=== PATIENT | female | born 2000 | race Hispanic/Latino ===

== ENCOUNTER 2023-11-10 09:59 | Emergency (ER) | payer SELFPAY ==
[2023-11-10 10:20] LABS: APPEARANCE,URINE SLT CLOUDY; BILIRUBIN,URINE NEGATIVE (NEGATIVE); COLOR,URINE YELLOW; GLUCOSE,URINE NEGATIVE (NEGATIVE); KETONES,URINE NEGATIVE (NEGATIVE); LEUKOCYTE ESTERASE,URINE LARGE (NEGATIVE); NITRITE,URINE NEGATIVE (NEGATIVE); OCCULT BLOOD,URINE MODERATE (NEGATIVE); PH,URINE 6.5 (5.0-8.0); PROTEIN,URINE NEGATIVE (NEGATIVE); UROBILINOGEN,URINE 0.2 EU/dL (<2.0)
[2023-11-10 10:24] LABS: BACTERIA,URINE 1+ (NEGATIVE); EPITHELIAL CELLS,URINE FEW (NONE-FEW); WBC,URINE 20-30 (0-5/HPF)
[2023-11-10] MEDS: Phenazopyridine 200 MG Tab PO ONE (11:08)
[2023-11-10] MEDS: Cefdinir 300 MG Cap PO ONE (11:08)
== END 2023-11-10 11:11 | disposition home or self-care (01) ==
LOC: MW.ED 09:59
DX: N39.0 Urinary tract infection, site not specified (principal); I10 Essential (primary) hypertension; E11.9 Type 2 diabetes mellitus without complications; Z75.8 Other problems related to medical facilities and other health care; Z88.1 Allergy status to other antibiotic agents; Z79.899 Other long term (current) drug therapy
CPT/HCPCS: 81001; 81003; 81025; 87086; 99283; A9270

== ENCOUNTER 2023-11-23 22:02 | Emergency (ER) | payer SELFPAY ==
[2023-11-23 22:19] LABS: APPEARANCE,URINE SLT CLOUDY; BILIRUBIN,URINE NEGATIVE (NEGATIVE); COLOR,URINE YELLOW; GLUCOSE,URINE NEGATIVE (NEGATIVE); KETONES,URINE NEGATIVE (NEGATIVE); LEUKOCYTE ESTERASE,URINE TRACE (NEGATIVE); NITRITE,URINE NEGATIVE (NEGATIVE); OCCULT BLOOD,URINE LARGE (NEGATIVE); PROTEIN,URINE NEGATIVE (NEGATIVE); UROBILINOGEN,URINE 0.2 EU/dL (<2.0)
[2023-11-23 22:26] LABS: BACTERIA,URINE MODERATE (NEGATIVE); EPITHELIAL CELLS,URINE MODERATE (NONE-FEW); RBC,URINE 0-1 (0-2/HPF)
[2023-11-23 22:52] LABS: BASOPHILS ABSOLUTE AUTO 0.05 K/uL (0.00-0.20); BASOPHILS PERCENT AUTO 0.5 % (0.0-1.0); EOSINOPHILS ABSOLUTE AUTO 0.27 K/uL (0.00-0.45); EOSINOPHILS PERCENT AUTO 2.9 % (0.0-6.0); HEMATOCRIT 41.5 % (37.0-47.0); HEMOGLOBIN 14.3 g/dL (12.0-16.0); IMMATURE GRAN ABSOLUTE AUTO 0.03 K/uL (0.00-0.05); IMMATURE GRAN PERCENT AUTO 0.3 % (0.0-0.4); LYMPHOCYTES ABSOLUTE AUTO 2.53 K/uL (1.00-4.80); LYMPHOCYTES PERCENT AUTO 27.3 % (24.0-44.0); MEAN CORPUSCULAR HEMOGLOBIN 30.4 pg (28.0-32.0); MEAN CORPUSCULAR HGB CONC 34.5 g/dL (32.0-36.0); MEAN CORPUSCULAR VOLUME 88.3 fL (83.0-99.0); MEAN PLATELET VOLUME 10.2 fL (9.4-12.3); MONOCYTES ABSOLUTE AUTO 0.63 K/uL (0.00-0.80); MONOCYTES PERCENT AUTO 6.8 % (0.0-8.0); NEUTROPHILS ABSOLUTE AUTO 5.77 K/uL (1.80-7.70); NEUTROPHILS PERCENT AUTO 62.2 % (41.0-71.0); PLATELET COUNT,PLT 251 K/uL (150-400); WHITE BLOOD CELL COUNT,WBC 9.28 K/uL (3.9-11.3)
[2023-11-23] MEDS: Ketorolac 30 MG/ML SDV IVPUSH ONE (22:56)
[2023-11-23] MEDS: Sodium Chloride 0.9% 1,000 ML IV ONE (22:56)
[2023-11-23 23:15] LABS: ALANINE AMINOTRANSFERASE,ALT 15 IU/L (14-63); ALKALINE PHOSPHATASE 95 U/L (46-116); ASPARTATE AMNIOTRANSFERASE,AST 18 IU/L (15-37); BILIRUBIN TOTAL 0.9 mg/dL (0.2-1.0); BLOOD UREA NITROGEN,BUN 13 mg/dL (7.0-18.0); CARBON DIOXIDE,CO2 25.4 mmol/L (21.0-32.0); CHLORIDE,CL 106 mmol/L (98-107); CREATININE 0.9 mg/dL (0.6-1.0); GLUCOSE RANDOM 92 mg/dL (74-106); POTASSIUM,K 3.7 mmol/L (3.5-5.1); PROTEIN TOTAL,TP 8.2 g/dL (6.4-8.2); SODIUM,NA 140 mmol/L (136-145)
[2023-11-23 23:16] LABS: ESTIMATED GFR 91 mL/min (>60)
[2023-11-23] MEDS: Morphine 2 MG/ML SYRINGE IVPUSH ONE (23:19)
[2023-11-23 23:44] LABS: CANDIDA DNA PROBE POSITIVE (NEGATIVE); GARDNERELLA DNA PROBE POSITIVE (NEGATIVE); TRICHOMONAS DNA PROBE NEGATIVE (NEGATIVE)
[2023-11-24 00:22] LABS: C. TRACHOMATIS BY PCR NOT DETECTED; N. GONORRHOEAE BY PCR NOT DETECTED
== END 2023-11-24 00:04 | disposition home or self-care (01) ==
LOC: MW.ED 22:02
DX: B37.31 Acute candidiasis of vulva and vagina (principal); N76.0 Acute vaginitis; Z88.1 Allergy status to other antibiotic agents; Z79.899 Other long term (current) drug therapy; Z75.8 Other problems related to medical facilities and other health care
CPT/HCPCS: 36415; 80053; 81001; 81025; 85025; 87480; 87491; 87510; 87591; 87660; 96374; 96375; 99283; J1885; J2270; J7030; 99284

== ENCOUNTER 2023-12-02 14:22 | Emergency (ER) | payer SELFPAY ==
[2023-12-02] MEDS: Ondansetron 4 MG Tab.DIS PO ONE (15:28)
== END 2023-12-03 10:11 | disposition home or self-care (01) ==
LOC: MW.ED 14:22
DX: S09.90XA Unspecified injury of head, initial encounter (principal); F17.210 Nicotine dependence, cigarettes, uncomplicated; Z75.8 Other problems related to medical facilities and other health care; Z88.8 Allergy status to other drugs, medicaments and biological substances; Z79.899 Other long term (current) drug therapy; W01.198A Fall on same level from slipping, tripping and stumbling with subsequent striking against other object, initial encounter
CPT/HCPCS: 70450; 99283; A9270

== ENCOUNTER 2023-12-28 18:54 | Emergency (ER) | payer SELFPAY ==
[2023-12-28 19:42] LABS: BASOPHILS ABSOLUTE AUTO 0.04 K/uL (0.00-0.20); BASOPHILS PERCENT AUTO 0.4 % (0.0-1.0); EOSINOPHILS ABSOLUTE AUTO 0.16 K/uL (0.00-0.45); EOSINOPHILS PERCENT AUTO 1.6 % (0.0-6.0); HEMATOCRIT 42.3 % (37.0-47.0); HEMOGLOBIN 14.3 g/dL (12.0-16.0); IMMATURE GRAN ABSOLUTE AUTO 0.02 K/uL (0.00-0.05); IMMATURE GRAN PERCENT AUTO 0.2 % (0.0-0.4); LYMPHOCYTES ABSOLUTE AUTO 1.94 K/uL (1.00-4.80); LYMPHOCYTES PERCENT AUTO 19.4 % (24.0-44.0); MEAN CORPUSCULAR HEMOGLOBIN 30.5 pg (28.0-32.0); MEAN CORPUSCULAR HGB CONC 33.8 g/dL (32.0-36.0); MEAN CORPUSCULAR VOLUME 90.2 fL (83.0-99.0); MONOCYTES ABSOLUTE AUTO 0.54 K/uL (0.00-0.80); MONOCYTES PERCENT AUTO 5.4 % (0.0-8.0); NEUTROPHILS ABSOLUTE AUTO 7.31 K/uL (1.80-7.70); PLATELET COUNT,PLT 242 K/uL (150-400); RED BLOOD CELL COUNT 4.69 M/uL (4.10-5.30); WHITE BLOOD CELL COUNT,WBC 10.01 K/uL (3.9-11.3)
[2023-12-28 20:00] LABS: APPEARANCE,URINE SLT CLOUDY; COLOR,URINE YELLOW; GLUCOSE,URINE NEGATIVE (NEGATIVE); KETONES,URINE 40 mg/dL (NEGATIVE); LEUKOCYTE ESTERASE,URINE SMALL (NEGATIVE); NITRITE,URINE NEGATIVE (NEGATIVE); OCCULT BLOOD,URINE MODERATE (NEGATIVE); PROTEIN,URINE NEGATIVE (NEGATIVE); UROBILINOGEN,URINE 0.2 EU/dL (<2.0)
[2023-12-28] MEDS: Ketorolac 30 MG/ML SDV IM ONE (20:08)
[2023-12-28 20:09] LABS: BILIRUBIN,URINE SMALL (NEGATIVE)
[2023-12-28 20:10] LABS: BACTERIA,URINE 1+ (NEGATIVE); EPITHELIAL CELLS,URINE MODERATE (NONE-FEW); RBC,URINE 0-2 (0-2/HPF)
[2023-12-28 20:23] LABS: ALBUMIN 4.2 g/dL (3.4-5.0); BILIRUBIN TOTAL 1.4 mg/dL (0.2-1.0); CARBON DIOXIDE,CO2 25.6 mmol/L (21.0-32.0); CREATININE 0.9 mg/dL (0.6-1.0); EST CRCL DRUG DOSING (CG) 75.58 mL/min; POTASSIUM,K 4.2 mmol/L (3.5-5.1); PROTEIN TOTAL,TP 8.2 g/dL (6.4-8.2)
== END 2023-12-28 20:30 | disposition home or self-care (01) ==
LOC: MW.ED 18:54
DX: M53.3 Sacrococcygeal disorders, not elsewhere classified (principal); Z88.8 Allergy status to other drugs, medicaments and biological substances; Z79.899 Other long term (current) drug therapy; Z75.8 Other problems related to medical facilities and other health care
CPT/HCPCS: 36415; 80053; 81001; 81025; 85025; 96372; 99283; J1885

== ENCOUNTER 2024-02-01 21:09 | Emergency (ER) | payer SELFPAY ==
[2024-02-01 22:12] LABS: BASOPHILS ABSOLUTE AUTO 0.07 K/uL (0.00-0.20); BASOPHILS PERCENT AUTO 0.7 % (0.0-1.0); EOSINOPHILS ABSOLUTE AUTO 0.08 K/uL (0.00-0.45); EOSINOPHILS PERCENT AUTO 0.8 % (0.0-6.0); HEMATOCRIT 45.6 % (37.0-47.0); HEMOGLOBIN 15.5 g/dL (12.0-16.0); IMMATURE GRAN ABSOLUTE AUTO 0.04 K/uL (0.00-0.05); IMMATURE GRAN PERCENT AUTO 0.4 % (0.0-0.4); LYMPHOCYTES PERCENT AUTO 20.1 % (24.0-44.0); MEAN CORPUSCULAR HEMOGLOBIN 30.6 pg (28.0-32.0); MEAN CORPUSCULAR VOLUME 89.9 fL (83.0-99.0); MEAN PLATELET VOLUME 10.1 fL (9.4-12.3); MONOCYTES PERCENT AUTO 5.7 % (0.0-8.0); NEUTROPHILS ABSOLUTE AUTO 7.56 K/uL (1.80-7.70); NEUTROPHILS PERCENT AUTO 72.3 % (41.0-71.0); PLATELET COUNT,PLT 257 K/uL (150-400); RED BLOOD CELL COUNT 5.07 M/uL (4.10-5.30); WHITE BLOOD CELL COUNT,WBC 10.45 K/uL (3.9-11.3)
[2024-02-01] MEDS: Iopamidol 755 MG/ML 500 ML Multipack Bottle IVPUSH STA (22:14)
[2024-02-01] MEDS: Sodium Chloride 0.9% 1,000 ML IV ONE (22:27)
[2024-02-01 22:30] LABS: D-DIMER QUANTITATIVE 0.82 mg/L FEU (0.00-0.50); PTT,PARTIAL THROMBOPLSTIN TIME 25.7 SEC (23.9-30.7)
[2024-02-01 22:43] LABS: A/G RATIO 1.1 (0.9-1.6); ALBUMIN 4.6 g/dL (3.4-5.0); BILIRUBIN TOTAL 1.5 mg/dL (0.2-1.0); CALCIUM 9.5 mg/dL (8.5-10.1); CARBON DIOXIDE,CO2 29.8 mmol/L (21.0-32.0); CREATININE 0.9 mg/dL (0.6-1.0); EST CRCL DRUG DOSING (CG) 75.58 mL/min; POTASSIUM,K 3.9 mmol/L (3.5-5.1); PROTEIN TOTAL,TP 8.6 g/dL (6.4-8.2)
[2024-02-01 23:11] LABS: BILIRUBIN,URINE NEGATIVE (NEGATIVE); COLOR,URINE YELLOW; GLUCOSE,URINE NEGATIVE (NEGATIVE); KETONES,URINE 40 mg/dL (NEGATIVE); LEUKOCYTE ESTERASE,URINE NEGATIVE (NEGATIVE); NITRITE,URINE NEGATIVE (NEGATIVE); OCCULT BLOOD,URINE NEGATIVE (NEGATIVE); PROTEIN,URINE NEGATIVE (NEGATIVE)
[2024-02-01 23:13] LABS: APPEARANCE,URINE HAZY
[2024-02-01] MEDS: Sodium Chloride 0.9% 10 ML Syringe FLUSH PRN (23:16)
[2024-02-01] MEDS: Sodium Chloride 0.9% 2.5 ML Syringe FLUSH PRN (23:16)
[2024-02-02] MEDS: Famotidine 20 MG/2 ML SDV IVPUSH ONE (00:02)
[2024-02-02] MEDS: Ketorolac 30 MG/ML SDV IVPUSH ONE (00:02)
[2024-02-02] MEDS: Diazepam 2 MG Tab PO ONE (00:56)
== END 2024-02-02 01:46 | disposition home or self-care (01) ==
LOC: MW.ED 21:09
DX: R00.2 Palpitations (principal); F41.9 Anxiety disorder, unspecified; R07.9 Chest pain, unspecified; Z88.8 Allergy status to other drugs, medicaments and biological substances; Z79.899 Other long term (current) drug therapy; Z75.8 Other problems related to medical facilities and other health care
CPT/HCPCS: 36415; 71275; 71275-26; 80053; 81003; 83880; 84484; 84703; 85025; 85379; 85730; 93005; 93010; 96361; 96374; 96375; 99285; 99285-25; A9270-GY; J1885; J3490; J7030; Q9967

== ENCOUNTER 2024-02-22 14:42 | Emergency (ER) | payer SELFPAY ==
[2024-02-22 15:15] LABS: BILIRUBIN,URINE NEGATIVE (NEGATIVE); COLOR,URINE YELLOW; GLUCOSE,URINE NEGATIVE (NEGATIVE); KETONES,URINE NEGATIVE (NEGATIVE); LEUKOCYTE ESTERASE,URINE MODERATE (NEGATIVE); NITRITE,URINE NEGATIVE (NEGATIVE); OCCULT BLOOD,URINE NEGATIVE (NEGATIVE); PROTEIN,URINE NEGATIVE (NEGATIVE); UROBILINOGEN,URINE 0.2 EU/dL (<2.0)
[2024-02-22 15:23] LABS: APPEARANCE,URINE SLT CLOUDY; BACTERIA,URINE FEW (NEGATIVE); EPITHELIAL CELLS,URINE FEW (NONE-FEW); RBC,URINE 0-1 (0-2/HPF)
[2024-02-22 16:08] LABS: CANDIDA DNA PROBE NEGATIVE (NEGATIVE); GARDNERELLA DNA PROBE NEGATIVE (NEGATIVE); TRICHOMONAS DNA PROBE NEGATIVE (NEGATIVE)
[2024-02-22 16:58] LABS: C. TRACHOMATIS BY PCR NOT DETECTED; N. GONORRHOEAE BY PCR NOT DETECTED
== END 2024-02-22 17:20 | disposition home or self-care (01) ==
LOC: MW.ED 14:42
DX: N30.00 Acute cystitis without hematuria (principal); F17.210 Nicotine dependence, cigarettes, uncomplicated; Z75.8 Other problems related to medical facilities and other health care; Z88.1 Allergy status to other antibiotic agents
CPT/HCPCS: 81001; 81025; 87086; 87480; 87491; 87510; 87591; 87660; 99283; 99284

== ENCOUNTER 2024-02-23 19:05 | Emergency (ER) | payer SELFPAY ==
[2024-02-23] MEDS: Sodium Chloride 0.9% 2.5 ML Syringe FLUSH PRN (19:37)
[2024-02-23] MEDS: Morphine 4 MG/ML Syringe IVPUSH ONE (19:37)
[2024-02-23] MEDS: Ondansetron 4 MG/2 ML SDV IVPUSH ONE (19:37)
[2024-02-23 19:50] LABS: BASOPHILS ABSOLUTE AUTO 0.08 K/uL (0.00-0.20); BASOPHILS PERCENT AUTO 0.4 % (0.0-1.0); EOSINOPHILS ABSOLUTE AUTO 0.16 K/uL (0.00-0.45); EOSINOPHILS PERCENT AUTO 0.9 % (0.0-6.0); HEMATOCRIT 42.6 % (37.0-47.0); HEMOGLOBIN 14.3 g/dL (12.0-16.0); IMMATURE GRAN ABSOLUTE AUTO 0.13 K/uL (0.00-0.05); IMMATURE GRAN PERCENT AUTO 0.7 % (0.0-0.4); LYMPHOCYTES ABSOLUTE AUTO 2.68 K/uL (1.00-4.80); LYMPHOCYTES PERCENT AUTO 14.3 % (24.0-44.0); MEAN CORPUSCULAR HEMOGLOBIN 31.2 pg (28.0-32.0); MEAN CORPUSCULAR HGB CONC 33.6 g/dL (32.0-36.0); MEAN PLATELET VOLUME 9.9 fL (9.4-12.3); MONOCYTES ABSOLUTE AUTO 0.83 K/uL (0.00-0.80); MONOCYTES PERCENT AUTO 4.4 % (0.0-8.0); NEUTROPHILS PERCENT AUTO 79.3 % (41.0-71.0); PLATELET COUNT,PLT 245 K/uL (150-400); RED BLOOD CELL COUNT 4.58 M/uL (4.10-5.30); WHITE BLOOD CELL COUNT,WBC 18.68 K/uL (3.9-11.3)
[2024-02-23] MEDS: Famotidine 20 MG/2 ML SDV IVPUSH ONE (19:53)
[2024-02-23 20:00] LABS: INR 1.02 (0.86-1.11)
[2024-02-23 20:11] LABS: A/G RATIO 1.2 (0.9-1.6); ALANINE AMINOTRANSFERASE,ALT 22 IU/L (14-63); ALBUMIN 4.1 g/dL (3.4-5.0); ALKALINE PHOSPHATASE 96 U/L (46-116); ASPARTATE AMNIOTRANSFERASE,AST 21 IU/L (15-37); BILIRUBIN TOTAL 0.9 mg/dL (0.2-1.0); BLOOD UREA NITROGEN,BUN 6 mg/dL (7.0-18.0); CALCIUM 9.1 mg/dL (8.5-10.1); CARBON DIOXIDE,CO2 25.8 mmol/L (21.0-32.0); CHLORIDE,CL 105 mmol/L (98-107); EST CRCL DRUG DOSING (CG) 68.02 mL/min; GLUCOSE RANDOM 123 mg/dL (74-106); POTASSIUM,K 3.4 mmol/L (3.5-5.1); PROTEIN TOTAL,TP 7.6 g/dL (6.4-8.2); SODIUM,NA 141 mmol/L (136-145)
[2024-02-23 20:12] LABS: ESTIMATED GFR 80 mL/min (>60); ETHANOL BLOOD MEDICAL < 3.0 mg/dL
[2024-02-23] MEDS: fentaNYL 100 MCG/2 ML SDV IVPUSH ONE (21:17)
[2024-02-23] MEDS: Hydrogen Peroxide 3% Top Soln 473 ML Bottle TOP ONE (21:20)
[2024-02-23] MEDS: Bacitracin Oint 1 GM U/D Packet TOP ONE (21:26)
[2024-02-23] MEDS: Hydrogen Peroxide 3% Top Soln 473 ML Bottle ONE (21:35)
[2024-02-23] MEDS: fentaNYL 50 MCG/ML SDV IVPUSH ONE (23:44)
[2024-02-23] MEDS: Sodium Chloride 0.9% 10 ML Syringe FLUSH PRN (23:44)
== END 2024-02-24 00:24 | disposition home or self-care (01) ==
LOC: MW.ED 19:05
DX: S52.101A Unspecified fracture of upper end of right radius, initial encounter for closed fracture (principal); S52.001A Unspecified fracture of upper end of right ulna, initial encounter for closed fracture; Z88.1 Allergy status to other antibiotic agents; Z79.899 Other long term (current) drug therapy; X58.XXXA Exposure to other specified factors, initial encounter
CPT/HCPCS: 29125; 36415; 71045; 73030; 73060; 73090; 80053; 80307; 84703; 85025; 85610; 96374; 96375; 96376; 99284; J2270; J2405; J3010; J3490

== ENCOUNTER 2024-02-29 07:57 | Day surgery (SDC) | payer MEDICAID ==
[~2024-02-29 07:57] MED LIST: Albuterol 0.083% 2.5 MG/3 ML Neb Soln NEB PRN; HYDROmorphone 1 MG/ML Syringe IVPUSH PRN; Metoclopramide 10 MG/2 ML SDV IVPUSH PRN; Morphine 2 MG/ML SYRINGE IVPUSH PRN; Naloxone 0.4 MG/ML SDV IVPUSH PRN; Ondansetron 4 MG/2 ML SDV IVPUSH PRN; droPERidol 5 MG/2 ML SDV IVPUSH PRN; fentaNYL 50 MCG/ML SDV IVPUSH PRN
[2024-02-29] MEDS ORDERED: ceFAZolin 2 GM in Sodium Chloride 0.9% 50 ML IV ONE (08:00)
[2024-02-29] MEDS ORDERED: Lidocaine 2% 5 ML SDV ONE ×2 (08:20→09:16)
[2024-02-29] MEDS ORDERED: Bupivacaine 0.5% 30 ML SDV ONE (08:20)
[2024-02-29] MEDS: Lactated Ringers 1,000 ML IV SCH (08:38)
[2024-02-29] MEDS ORDERED: Midazolam 1 MG/ML 2 ML SDV ONE ×2 (08:39→10:53)
[2024-02-29] MEDS ORDERED: Scopalamine 1mg/3day Transdermal Patch TOP ONE (08:40)
[2024-02-29] MEDS ORDERED: propofoL 50 ML ONE ×2 (09:16→11:56)
[2024-02-29] MEDS ORDERED: ceFAZolin 1 GM Vial ONE (11:07)
[2024-02-29] MEDS ORDERED: fentaNYL 100 MCG/2 ML SDV ONE (11:11)
[2024-02-29] MEDS ORDERED: Propofol 200 MG/20 ML SDV ONE ×2 (12:53→13:10)
[2024-02-29] MEDS ORDERED: Ondansetron 4 MG/2 ML SDV ONE (13:34)
== END 2024-02-29 15:25 | disposition home or self-care (01) ==
LOC: MW.SDS 07:57
PROVIDERS: ATTEND Orthopaedic Surgery
DX: S52.301A Unspecified fracture of shaft of right radius, initial encounter for closed fracture (principal); S52.201A Unspecified fracture of shaft of right ulna, initial encounter for closed fracture; J45.909 Unspecified asthma, uncomplicated; E66.9 Obesity, unspecified; Z88.8 Allergy status to other drugs, medicaments and biological substances; Z79.899 Other long term (current) drug therapy; V86.95XA Unspecified occupant of 3- or 4- wheeled all-terrain vehicle (ATV) injured in nontraffic accident, initial encounter
CPT/HCPCS: 25575; 76000; 81025; J0665; J0690; J2250; J2405; J2704; J3010; J7120; 01830; 64417; C1713; C1776; J3490

== ENCOUNTER 2024-03-04 22:05 | Emergency (ER) | payer MEDICAID | END 2024-03-04 22:40 | disposition home or self-care (01) | LOC: MW.ED 22:05 | DX: Z48.817 Encounter for surgical aftercare following surgery on the skin and subcutaneous tissue (principal); J45.909 Unspecified asthma, uncomplicated; Z79.82 Long term (current) use of aspirin; Z88.8 Allergy status to other drugs, medicaments and biological substances; Z90.49 Acquired absence of other specified parts of digestive tract; Z79.899 Other long term (current) drug therapy | CPT/HCPCS: 99282; 99283 ==

== ENCOUNTER 2024-08-29 14:44 | Emergency (ER) | payer SELFPAY ==
[2024-08-29 15:59] LABS: APPEARANCE,URINE CLEAR; BILIRUBIN,URINE NEGATIVE (NEGATIVE); COLOR,URINE YELLOW; GLUCOSE,URINE NEGATIVE (NEGATIVE); KETONES,URINE NEGATIVE (NEGATIVE); LEUKOCYTE ESTERASE,URINE TRACE (NEGATIVE); NITRITE,URINE NEGATIVE (NEGATIVE); OCCULT BLOOD,URINE NEGATIVE (NEGATIVE); PROTEIN,URINE NEGATIVE (NEGATIVE); UROBILINOGEN,URINE 0.2 EU/dL (<2.0)
[2024-08-29 16:47] LABS: BACTERIA,URINE RARE (NEGATIVE); EPITHELIAL CELLS,URINE FEW (NONE-FEW); RBC,URINE 0-1 (0-2/HPF); WBC,URINE 0-2 (0-5/HPF)
[2024-08-29 16:49] LABS: CANDIDA DNA PROBE NEGATIVE (NEGATIVE); GARDNERELLA DNA PROBE NEGATIVE (NEGATIVE); TRICHOMONAS DNA PROBE NEGATIVE (NEGATIVE)
[2024-08-29 19:59] LABS: C. TRACHOMATIS BY PCR NOT DETECTED; N. GONORRHOEAE BY PCR NOT DETECTED
== END 2024-08-29 17:45 | disposition left against medical advice (07) ==
LOC: MW.ED 14:44
DX: Z53.21 Procedure and treatment not carried out due to patient leaving prior to being seen by health care provider (principal)
CPT/HCPCS: 81001; 81025; 87480; 87491; 87510; 87591; 87660